=== PATIENT | female | born 1970 | race African-American/Black ===

== ENCOUNTER 2018-04-19 14:36 | Inpatient (IN) ==
[2018-04-19] MEDS ORDERED: SODIUM CHLORIDE 0.9% 1,000 ML IV STA (14:57)
[2018-04-19] MEDS ORDERED: HYDROmorphone 2 MG/1 ML VIAL IV STA (14:57)
[2018-04-19] MEDS ORDERED: PROMETHAZINE 25 MG/1 ML VIAL IM STA (14:58)
[2018-04-19 15:41] LABS: Basophils % 0.3 % (0.0-0.8); Eosinophils % 0.3 % (0.00-10.9); Hematocrit 37.3 VOL% (35.7-47.0); Hemoglobin 12.8 GM/DL (12.0-16.0); Immature Granulocytes % 0.7 %; Immature Granulocytes Absolute 0.05 #; Lymphocytes # 2.5 10*3/uL (1.4-4.0); Lymphocytes % 36.4 % (21.3-54.2); Mean Corpuscular HGB Conc 34.3 GM/DL (32-36); Mean Corpuscular Hemoglobin 30 PG (27-34); Mean Corpuscular Volume 87.4 FL (87-102); Mean Platelet Volume 11.3 FL (9.6-12.0); Monocytes # 0.7 10*3/uL (0.11-0.8); Monocytes % 9.5 % (1.7-12.7); Neutrophils # 3.7 10*3/uL (1.4-7.4); Neutrophils % 52.8 % (38.7-73.9); Platelet Count 177 T/CUMM (130-400); Red Blood Count 4.27 MC/CUMM (3.8-5.5)
[2018-04-19 16:00] LABS: Alanine Aminotransferase 24 U/L (13-56); Albumin 3.1 G/DL (3.4-5.0); Alkaline Phosphatase 53 U/L (45-117); Aspartate Amino Transferase 29 U/L (0-37); Blood Urea Nitrogen 14 MG/DL (7-18); Calcium 8.9 MG/DL (8.5-10.1); Glucose 107 MG/DL (74-106); Osmolality,Calculated 275.7 MOS/KG (273-304); Potassium 3.9 MMOL/L (3.5-5.1); Sodium 138 MMOL/L (136-145); Total Protein 6.7 G/DL (6.4-8.3)
[2018-04-19 16:08] LABS: Folate 3.2 NG/ML (5.4-24.0)
[2018-04-19 16:08] LABS: Apearance,Urine Slightly Hazy (Clear); Bilirubin,Urine Negative (Negative); Blood, Urine Negative (Negative); Glucose,Urine (UA) Negative (Negative); Ketones,Urine 20 mg/dL (Negative); Mucus,Urine Occasional /LPF (Occasional); Nitrite,Urine Negative (Negative); Protein,Urine 30 MG/DL; RBC,Urine 1 /HPF (0-4); Squamous Epithelial Cell,Urine Occasional /HPF (0-10); Urine Color Amber (Yellow); Urine Specific Gravity 1.024 (1.001-1.035); Urine Urobilinogen < 2.0 EU/DL (0.2-1.0); WBC,Urine 1 /HPF (0-6)
[2018-04-19] MEDS ORDERED: MAGNESIUM SULF RIDER 4 GM in PREMIX 1 EACH IV STA (16:23)
[2018-04-19] MEDS ORDERED: hydrALAZINE 20 MG/1 ML VIAL IV STA (16:27)
[2018-04-19] MEDS ORDERED: MAGNESIUM SULF RIDER 100 ML IV ONE (16:28)
[2018-04-19] MEDS ORDERED: hydrALAZINE 20 MG/1 ML VIAL ONE (16:28)
[2018-04-19] MEDS ORDERED: cefTRIAXone 1,000 MG in SODIUM CHLORIDE 0.9% 100 ML IV STA (17:40)
[2018-04-19] MEDS ORDERED: ACETAMINOPHEN 325 MG TABLET PO PRN (18:12)
[2018-04-19] MEDS ORDERED: MELOXICAM 7.5 MG TABLET PO PRN (18:14)
[2018-04-19] MEDS ORDERED: GABAPENTIN 100 MG CAPSULE PO PRN (18:14)
[2018-04-19] MEDS: ZOLPIDEM 5 MG TABLET PO SCH (22:32)
[2018-04-20] MEDS: traMADol 50 MG TABLET PO PRN ×3 (00:08→20:56)
[2018-04-20] MEDS ORDERED: PROMETHAZINE 25 MG/1 ML VIAL IM PRN (04:54)
[2018-04-20 05:19] LABS: Basophils % 0.2 % (0.0-0.8); Hemoglobin 12.3 GM/DL (12.0-16.0); Immature Granulocytes % 0.7 %; Immature Granulocytes Absolute 0.06 #; Lymphocytes # 1.5 10*3/uL (1.4-4.0); Lymphocytes % 18.3 % (21.3-54.2); Mean Corpuscular HGB Conc 34.2 GM/DL (32-36); Mean Corpuscular Hemoglobin 30 PG (27-34); Mean Corpuscular Volume 86.7 FL (87-102); Mean Platelet Volume 11.4 FL (9.6-12.0); Monocytes # 0.7 10*3/uL (0.11-0.8); Monocytes % 9.1 % (1.7-12.7); Neutrophils # 5.8 10*3/uL (1.4-7.4); Neutrophils % 71.7 % (38.7-73.9); Platelet Count 184 T/CUMM (130-400); Red Blood Count 4.15 MC/CUMM (3.8-5.5); Red Cell Distribution Width 16.2 % (9.3-17.3); White Blood Count 8.1 T/CUMM (4-12)
[2018-04-20 05:41] LABS: Calcium 8.9 MG/DL (8.5-10.1); Osmolality,Calculated 277.5 MOS/KG (273-304); Risk Ratio 1.78; VLDL CHOLESTEROL 19.6 MG/DL
[2018-04-20] MEDS ORDERED: FUROSEMIDE 40 MG TABLET PO SCH (09:00)
[2018-04-20] MEDS: LOSARTAN 50 MG TABLET PO SCH (09:24)
[2018-04-20] MEDS: ENOXAPARIN 40 MG/0.4 ML SYRINGE SUBCUT SCH (09:26)
[2018-04-20] MEDS: PANTOPRAZOLE 40 MG TABLET PO SCH (09:26)
[2018-04-20] MEDS: FUROSEMIDE 20 MG TABLET PO SCH (09:26)
[2018-04-20] MEDS: cefTRIAXone 1,000 MG in SYRINGE 1 EACH IV SCH (10:38)
[2018-04-20] MEDS: AZITHROMYCIN INJ 500 MG in SODIUM CHLORIDE 0.9% 250 ML IV SCH (10:40)
[2018-04-20] MEDS: METOPROLOL SUCCINATE XL 25 MG TABLET PO SCH (15:28)
[2018-04-20 16:00] LABS: Barbiturates Screen,Urine Negative (Negative); Benzodiazepines Screen,Urine Negative (Negative); Cannabinoid Screen,Urine Negative (Negative); Opiate Screen,Urine Positive (Negative); Phencyclidine Screen,Urine Negative (Negative)
[2018-04-20] MEDS: ZOLPIDEM 5 MG TABLET PO SCH (20:56)
[2018-04-21 04:51] LABS: Basophils % 0.5 % (0.0-0.8); Eosinophils # 0.4 10*3/uL (0.0-0.87); Eosinophils % 6.6 % (0.00-10.9); Hematocrit 33.4 VOL% (35.7-47.0); Hemoglobin 11.4 GM/DL (12.0-16.0); Immature Granulocytes % 0.8 %; Immature Granulocytes Absolute 0.05 #; Lymphocytes # 2.2 10*3/uL (1.4-4.0); Mean Corpuscular HGB Conc 34.1 GM/DL (32-36); Mean Corpuscular Hemoglobin 30 PG (27-34); Mean Corpuscular Volume 87.4 FL (87-102); Mean Platelet Volume 11.6 FL (9.6-12.0); Monocytes # 0.7 10*3/uL (0.11-0.8); Monocytes % 10.8 % (1.7-12.7); Neutrophils # 2.9 10*3/uL (1.4-7.4); Neutrophils % 46.3 % (38.7-73.9); Platelet Count 173 T/CUMM (130-400); Red Blood Count 3.82 MC/CUMM (3.8-5.5); Red Cell Distribution Width 16.5 % (9.3-17.3); White Blood Count 6.2 T/CUMM (4-12)
[2018-04-21 05:28] LABS: Calcium 8.3 MG/DL (8.5-10.1); Osmolality,Calculated 275.4 MOS/KG (273-304); Potassium 3.5 MMOL/L (3.5-5.1)
[2018-04-21] MEDS: ENOXAPARIN 40 MG/0.4 ML SYRINGE SUBCUT SCH (08:13)
[2018-04-21] MEDS: METOPROLOL SUCCINATE XL 25 MG TABLET PO SCH (08:14)
[2018-04-21] MEDS: LOSARTAN 50 MG TABLET PO SCH (08:14)
[2018-04-21] MEDS: FUROSEMIDE 20 MG TABLET PO SCH (08:14)
[2018-04-21] MEDS: PANTOPRAZOLE 40 MG TABLET PO SCH (08:14)
[2018-04-21] MEDS: cefTRIAXone 1,000 MG in SYRINGE 1 EACH IV SCH (08:14)
[2018-04-21] MEDS: AZITHROMYCIN INJ 500 MG in SODIUM CHLORIDE 0.9% 250 ML IV SCH (10:03)
[2018-04-21] MEDS: traMADol 50 MG TABLET PO PRN ×2 (11:58→21:42)
[2018-04-21] MEDS: CYCLOBENZAPRINE 10 MG TABLET PO PRN (16:43)
[2018-04-21] MEDS: ZOLPIDEM 5 MG TABLET PO SCH (21:41)
[2018-04-22] MEDS: ENOXAPARIN 40 MG/0.4 ML SYRINGE SUBCUT SCH (09:06)
[2018-04-22] MEDS: cefTRIAXone 1,000 MG in SYRINGE 1 EACH IV SCH (09:06)
[2018-04-22] MEDS: METOPROLOL SUCCINATE XL 25 MG TABLET PO SCH (09:09)
[2018-04-22] MEDS: LOSARTAN 50 MG TABLET PO SCH (09:10)
[2018-04-22] MEDS: PANTOPRAZOLE 40 MG TABLET PO SCH (09:10)
[2018-04-22] MEDS: traMADol 50 MG TABLET PO PRN ×2 (09:10→18:37)
[2018-04-22] MEDS: FUROSEMIDE 20 MG TABLET PO SCH (09:15)
[2018-04-22] MEDS: AZITHROMYCIN INJ 500 MG in SODIUM CHLORIDE 0.9% 250 ML IV SCH (10:28)
[2018-04-22] MEDS: GABAPENTIN 300 MG CAPSULE PO SCH (20:22)
[2018-04-22] MEDS: ZOLPIDEM 5 MG TABLET PO SCH (20:22)
[2018-04-23] MEDS: traMADol 50 MG TABLET PO PRN ×2 (03:32→10:05)
[2018-04-23] MEDS: CYCLOBENZAPRINE 10 MG TABLET PO PRN ×2 (03:33→10:05)
[2018-04-23 04:50] LABS: Basophils % 0.6 % (0.0-0.8); Eosinophils # 0.5 10*3/uL (0.0-0.87); Eosinophils % 7.9 % (0.00-10.9); Hematocrit 33.7 VOL% (35.7-47.0); Hemoglobin 11.2 GM/DL (12.0-16.0); Immature Granulocytes % 0.6 %; Immature Granulocytes Absolute 0.04 #; Lymphocytes # 2.4 10*3/uL (1.4-4.0); Lymphocytes % 37.6 % (21.3-54.2); Mean Corpuscular HGB Conc 33.2 GM/DL (32-36); Mean Corpuscular Hemoglobin 29 PG (27-34); Mean Corpuscular Volume 88.2 FL (87-102); Mean Platelet Volume 10.9 FL (9.6-12.0); Monocytes # 0.6 10*3/uL (0.11-0.8); Neutrophils # 2.7 10*3/uL (1.4-7.4); Neutrophils % 43.3 % (38.7-73.9); Platelet Count 189 T/CUMM (130-400); Red Blood Count 3.82 MC/CUMM (3.8-5.5); Red Cell Distribution Width 15.9 % (9.3-17.3); White Blood Count 6.3 T/CUMM (4-12)
[2018-04-23 05:17] LABS: Albumin 2.7 G/DL (3.4-5.0); Bilirubin,Total 0.7 MG/DL (0.2-1.0); Calcium 8.6 MG/DL (8.5-10.1); Osmolality,Calculated 283.3 MOS/KG (273-304); Potassium 3.2 MMOL/L (3.5-5.1)
[2018-04-23] MEDS: FUROSEMIDE 20 MG TABLET PO SCH (08:39)
[2018-04-23] MEDS: METOPROLOL SUCCINATE XL 25 MG TABLET PO SCH (08:39)
[2018-04-23] MEDS: GABAPENTIN 300 MG CAPSULE PO SCH ×2 (08:39→20:24)
[2018-04-23] MEDS: LOSARTAN 50 MG TABLET PO SCH (08:39)
[2018-04-23] MEDS: cefTRIAXone 1,000 MG in SYRINGE 1 EACH IV SCH (08:39)
[2018-04-23] MEDS: PANTOPRAZOLE 40 MG TABLET PO SCH (08:40)
[2018-04-23] MEDS: ENOXAPARIN 40 MG/0.4 ML SYRINGE SUBCUT SCH (09:18)
[2018-04-23] MEDS: amLODIPine 5 MG TABLET PO SCH (09:19)
[2018-04-23] MEDS ORDERED: POTASSIUM CHLORIDE 20 MEQ TABLET PO ONE (10:10)
[2018-04-23] MEDS: MAGNESIUM OXIDE 400 MG TABLET PO SCH ×2 (10:49→20:24)
[2018-04-23] MEDS: ZOLPIDEM 5 MG TABLET PO SCH (20:23)
[2018-04-24 05:04] LABS: Basophils # 0.1 10*3/uL (0.0-0.2); Basophils % 0.8 % (0.0-0.8); Eosinophils # 0.3 10*3/uL (0.0-0.87); Eosinophils % 4.5 % (0.00-10.9); Hematocrit 32.4 VOL% (35.7-47.0); Hemoglobin 10.9 GM/DL (12.0-16.0); Immature Granulocytes % 0.8 %; Immature Granulocytes Absolute 0.05 #; Lymphocytes # 2.9 10*3/uL (1.4-4.0); Lymphocytes % 45.6 % (21.3-54.2); Mean Corpuscular HGB Conc 33.6 GM/DL (32-36); Mean Corpuscular Hemoglobin 29 PG (27-34); Mean Corpuscular Volume 87.3 FL (87-102); Mean Platelet Volume 11.1 FL (9.6-12.0); Monocytes # 0.8 10*3/uL (0.11-0.8); Monocytes % 12.5 % (1.7-12.7); Neutrophils # 2.3 10*3/uL (1.4-7.4); Neutrophils % 35.8 % (38.7-73.9); Platelet Count 205 T/CUMM (130-400); Red Blood Count 3.71 MC/CUMM (3.8-5.5); Red Cell Distribution Width 16.2 % (9.3-17.3); White Blood Count 6.4 T/CUMM (4-12)
[2018-04-24 05:17] LABS: Calcium 8.8 MG/DL (8.5-10.1); Osmolality,Calculated 275.7 MOS/KG (273-304); Potassium 3.6 MMOL/L (3.5-5.1)
[2018-04-24 05:36] LABS: Eosinophils 2 % (0-10); Lymphocytes 38 % (20-55); Nucleated Red Blood Cells 1 (0-5); Platelet Estimate Normal; Polychromasia Slight; Segmented Neutrophils 55 % (50-85); Total Cells Counted 100
[2018-04-24] MEDS ORDERED: MAGNESIUM SULF RIDER 2 GM in PREMIX 1 EACH IV PRN (08:10)
[2018-04-24] MEDS ORDERED: MAGNESIUM SULF RIDER 4 GM in PREMIX 1 EACH IV PRN (08:10)
[2018-04-24] MEDS: MAGNESIUM OXIDE 400 MG TABLET PO SCH ×2 (09:31→21:09)
[2018-04-24] MEDS: PANTOPRAZOLE 40 MG TABLET PO SCH (09:31)
[2018-04-24] MEDS: GABAPENTIN 300 MG CAPSULE PO SCH ×2 (09:31→21:09)
[2018-04-24] MEDS: FUROSEMIDE 20 MG TABLET PO SCH (09:31)
[2018-04-24] MEDS: POTASSIUM CHLORIDE 20 MEQ TABLET PO SCH (09:31)
[2018-04-24] MEDS: LOSARTAN 50 MG TABLET PO SCH (09:31)
[2018-04-24] MEDS: amLODIPine 5 MG TABLET PO SCH (09:32)
[2018-04-24] MEDS: ENOXAPARIN 40 MG/0.4 ML SYRINGE SUBCUT SCH (09:32)
[2018-04-24] MEDS: METOPROLOL SUCCINATE XL 100 MG TABLET PO SCH (09:35)
[2018-04-24] MEDS: IMMUNE GLOBULIN 10% 40 GM, IMMUNE GLOBULIN 10% 5 GM in PREMIX 1 EACH IV SCH (14:23)
[2018-04-24] MEDS: ZOLPIDEM 5 MG TABLET PO SCH (21:09)
[2018-04-25 05:59] LABS: Basophils % 0.7 % (0.0-0.8); Eosinophils # 0.2 10*3/uL (0.0-0.87); Eosinophils % 3.6 % (0.00-10.9); Hemoglobin 11.2 GM/DL (12.0-16.0); Immature Granulocytes % 0.9 %; Immature Granulocytes Absolute 0.05 #; Lymphocytes # 1.4 10*3/uL (1.4-4.0); Mean Corpuscular HGB Conc 32.9 GM/DL (32-36); Mean Corpuscular Hemoglobin 29 PG (27-34); Mean Corpuscular Volume 88.8 FL (87-102); Mean Platelet Volume 10.6 FL (9.6-12.0); Monocytes # 0.4 10*3/uL (0.11-0.8); Neutrophils # 3.9 10*3/uL (1.4-7.4); Neutrophils % 65.8 % (38.7-73.9); Platelet Count 219 T/CUMM (130-400); Red Blood Count 3.83 MC/CUMM (3.8-5.5); Red Cell Distribution Width 15.7 % (9.3-17.3); White Blood Count 5.9 T/CUMM (4-12)
[2018-04-25] MEDS ORDERED: amLODIPine 10 MG TABLET PO SCH (08:04)
[2018-04-25] MEDS: LOSARTAN 50 MG TABLET PO SCH (08:56)
[2018-04-25] MEDS: FUROSEMIDE 20 MG TABLET PO SCH (08:56)
[2018-04-25] MEDS: POTASSIUM CHLORIDE 20 MEQ TABLET PO SCH (08:56)
[2018-04-25] MEDS: GABAPENTIN 300 MG CAPSULE PO SCH (08:56)
[2018-04-25] MEDS: CYCLOBENZAPRINE 10 MG TABLET PO PRN (08:56)
[2018-04-25] MEDS: PANTOPRAZOLE 40 MG TABLET PO SCH (08:57)
[2018-04-25] MEDS: MAGNESIUM OXIDE 400 MG TABLET PO SCH (08:57)
[2018-04-25] MEDS: METOPROLOL SUCCINATE XL 100 MG TABLET PO SCH (08:57)
[2018-04-25] MEDS: ENOXAPARIN 40 MG/0.4 ML SYRINGE SUBCUT SCH (08:58)
[2018-04-25] MEDS: IMMUNE GLOBULIN 10% 40 GM, IMMUNE GLOBULIN 10% 5 GM in PREMIX 1 EACH IV SCH (11:30)
[2018-04-25 14:23] LABS: Basophils % 0.4 % (0.0-0.8); Eosinophils # 0.3 10*3/uL (0.0-0.87); Eosinophils % 4.6 % (0.00-10.9); Hematocrit 33.2 VOL% (35.7-47.0); Hemoglobin 11.1 GM/DL (12.0-16.0); Immature Granulocytes % 1.1 %; Immature Granulocytes Absolute 0.06 #; Lymphocytes % 34.9 % (21.3-54.2); Mean Corpuscular HGB Conc 33.4 GM/DL (32-36); Mean Corpuscular Hemoglobin 30 PG (27-34); Mean Corpuscular Volume 88.3 FL (87-102); Mean Platelet Volume 10.4 FL (9.6-12.0); Monocytes # 0.4 10*3/uL (0.11-0.8); Monocytes % 7.2 % (1.7-12.7); Neutrophils % 51.8 % (38.7-73.9); Platelet Count 215 T/CUMM (130-400); Red Blood Count 3.76 MC/CUMM (3.8-5.5); Red Cell Distribution Width 15.6 % (9.3-17.3); White Blood Count 5.7 T/CUMM (4-12)
[2018-04-25] MEDS ORDERED: ETOMIDATE 20 MG/10 ML VIAL IV ONE ×2 (14:37→14:42)
[2018-04-25] MEDS ORDERED: VECURONIUM 10 MG VIAL IV ONE ×2 (14:37→14:45)
[2018-04-25 14:45] LABS: Albumin 2.5 G/DL (3.4-5.0); Bilirubin,Total 0.5 MG/DL (0.2-1.0); Calcium 8.5 MG/DL (8.5-10.1); Osmolality,Calculated 275.7 MOS/KG (273-304); Potassium 3.6 MMOL/L (3.5-5.1); Total Protein 7.3 G/DL (6.4-8.3)
[2018-04-25] MEDS ORDERED: PROPOFOL 1,000 MG/100 ML BOTTLE IV SCH (15:30)
[2018-04-25 16:07] LABS: ABG Base Excess 0.1 MMOL/L (-2.5-2.5); ABG HCO3 21.8 MMOL/L (20-26); ABG Oxygen Saturation 97.3 % (95-100); ABG PCO2 27.3 MM HG (35-48); ABG PO2 85.6 MM HG (80-95); ABG TCO2 22.6 MMOL/L (23-27)
[2018-04-25 16:37] LABS: Apearance,Urine CLEAR (Clear); Bacteria,Urine Occasional /HPF (Few); Bilirubin,Urine Negative (Negative); Blood, Urine Small mg/dL (Negative); Glucose,Urine (UA) Negative (Negative); Ketones,Urine Negative (Negative); Mucus,Urine Occasional /LPF (Occasional); Nitrite,Urine Negative (Negative); Protein,Urine Negative; RBC,Urine <1 /HPF (0-4); Squamous Epithelial Cell,Urine Occasional /HPF (0-10); Urine Color Straw (Yellow); Urine Specific Gravity 1.006 (1.001-1.035); Urine Urobilinogen < 2.0 EU/DL (0.2-1.0); WBC,Urine 1 /HPF (0-6)
[2018-04-25] MEDS ORDERED: MIDAZOLAM 100 MG in SODIUM CHLORIDE 0.9% 80 ML IV PRN (17:40)
[2018-04-25 18:55] VITALS: BP 109/78
[2018-04-25] MEDS ORDERED: AMITRIPTYLINE 25 MG TABLET PO SCH (21:00)
== END 2018-04-25 19:30 | disposition hospice, home (50) | DRG 95 ==
LOC: N.ED 14:36 → SUATTDRO 18:10 → N.EDINP 18:10 → N.3E 19:33 → N.CC 04-25 14:35
PROVIDERS: ADMIT Internal Medicine; ATTEND Hospitalist

== ENCOUNTER 2018-11-18 13:36 | Inpatient (IN) ==
[2018-11-18 15:12] LABS: Apearance,Urine Slightly Hazy (Clear); Bacteria,Urine Many /HPF (Few); Blood, Urine Small mg/dL (Negative); Glucose,Urine (UA) Negative (Negative); Ketones,Urine Negative (Negative); Mucus,Urine Few /LPF (Occasional); Nitrite,Urine Negative (Negative); Protein,Urine 30 MG/DL; Squamous Epithelial Cell,Urine Occasional /HPF (0-10); Urine Color Amber (Yellow); Urine Specific Gravity 1.023 (1.001-1.035); WBC,Urine 6 /HPF (0-6)
[2018-11-18 15:15] LABS: Bilirubin,Urine Small mg/dL (Negative)
[2018-11-18 17:06] LABS: Basophils % 0.3 % (0.0-0.8); Hematocrit 31.3 VOL% (35.7-47.0); Hemoglobin 10.2 GM/DL (12.0-16.0); Immature Granulocytes % 1.6 %; Immature Granulocytes Absolute 0.19 #; Lymphocytes # 3.7 10*3/uL (1.4-4.0); Lymphocytes % 30.3 % (21.3-54.2); Mean Corpuscular HGB Conc 32.6 GM/DL (32-36); Mean Corpuscular Volume 84.1 FL (87-102); Mean Platelet Volume 10.4 FL (9.6-12.0); Monocytes % 4.7 % (1.7-12.7); Neutrophils % 63.1 % (38.7-73.9); Platelet Count 209 T/CUMM (130-400); Red Blood Count 3.72 MC/CUMM (3.8-5.5); Red Cell Distribution Width 19.6 % (9.3-17.3); White Blood Count 12.1 T/CUMM (4-12)
[2018-11-18 17:45] LABS: Albumin 1.7 G/DL (3.4-5.0); Bilirubin,Total 1.2 MG/DL (0.2-1.0); Total Protein 5.6 G/DL (6.4-8.3)
[2018-11-18] MEDS ORDERED: SODIUM CHLORIDE 0.9% 500 ML IV ONE (18:35)
[2018-11-18] MEDS ORDERED: SODIUM CHLORIDE 0.9% 1,000 ML IV ONE (18:35)
[2018-11-18] MEDS ORDERED: ACETAMINOPHEN 325 MG TABLET PO PRN (19:00)
[2018-11-18 20:34] LABS: Troponin I 0.324 NG/ML (0.00-0.045)
[2018-11-18] MEDS ORDERED: ENOXAPARIN 30 MG/0.3 ML SYRINGE SUBCUT SCH (21:00)
[2018-11-18] MEDS: SODIUM CHLORIDE 0.9% 1,000 ML IV SCH (22:12)
[2018-11-18] MEDS: guaiFENesin/DM ER 600-30 MG TABLET PO SCH (22:12)
[2018-11-18] MEDS: MEROPENEM 500 MG in SODIUM CHLORIDE 0.9% 100 ML IV SCH (22:54)
[2018-11-18] MEDS: VANCOMYCIN INJ 1,500 MG in SODIUM CHLORIDE 0.9% 500 ML IV SCH (23:41)
[2018-11-19 02:05] LABS: Basophils % 0.1 % (0.0-0.8); Hematocrit 30.8 VOL% (35.7-47.0); Hemoglobin 9.8 GM/DL (12.0-16.0); Immature Granulocytes % 1.8 %; Immature Granulocytes Absolute 0.26 #; Lymphocytes # 5.6 10*3/uL (1.4-4.0); Lymphocytes % 38.4 % (21.3-54.2); Mean Corpuscular HGB Conc 31.8 GM/DL (32-36); Mean Corpuscular Volume 85.3 FL (87-102); Monocytes % 6.9 % (1.7-12.7); Neutrophils % 52.8 % (38.7-73.9); Platelet Count 204 T/CUMM (130-400); Red Blood Count 3.61 MC/CUMM (3.8-5.5); Red Cell Distribution Width 19.6 % (9.3-17.3); White Blood Count 14.6 T/CUMM (4-12)
[2018-11-19 02:24] LABS: Albumin 1.6 G/DL (3.4-5.0); Bilirubin,Total 0.8 MG/DL (0.2-1.0); Calcium 7.5 MG/DL (8.5-10.1); Osmolality,Calculated 288.8 MOS/KG (273-304); Risk Ratio 2.3; Total Protein 5.1 G/DL (6.4-8.3); VLDL CHOLESTEROL 26.8 MG/DL
[2018-11-19 02:26] LABS: Troponin I 0.323 NG/ML (0.00-0.045)
[2018-11-19] MEDS: MEROPENEM 500 MG in SODIUM CHLORIDE 0.9% 100 ML IV SCH ×3 (04:31→22:09)
[2018-11-19] MEDS: SODIUM CHLORIDE 0.9% 1,000 ML IV SCH ×3 (04:35→21:19)
[2018-11-19] MEDS ORDERED: ASPIRIN CHEW 81 MG TABLET PO SCH (09:00)
[2018-11-19] MEDS: guaiFENesin/DM ER 600-30 MG TABLET PO SCH ×2 (09:14→21:26)
[2018-11-19] MEDS ORDERED: oxyCODONE IR 5 MG TABLET PO PRN (11:58)
[2018-11-19] MEDS ORDERED: HEPARIN 5,000 UNIT/1 ML VIAL IV ONE (16:00)
[2018-11-19] MEDS: HEPARIN DRIP 25,000 UNITS/500 ML PREMIX IV SCH (16:43)
[2018-11-19 17:07] LABS: ABG Base Excess -3.6 MMOL/L (-2.5-2.5); ABG HCO3 21.4 MMOL/L (20-26); ABG Oxygen Saturation 95.7 % (95-100); ABG PCO2 36.6 MM HG (35-48); ABG PO2 76.8 MM HG (80-95); ABG TCO2 19.4 MMOL/L (23-27)
[2018-11-19] MEDS ORDERED: SODIUM CHLORIDE 0.9% 500 ML IV ONE ×2 (18:11→20:55)
[2018-11-19] MEDS ORDERED: GABAPENTIN 300 MG CAPSULE PO SCH (21:00)
[2018-11-19] MEDS: VANCOMYCIN INJ 1,500 MG in SODIUM CHLORIDE 0.9% 500 ML IV SCH (22:58)
[2018-11-20 01:48] LABS: Calcium 6.9 MG/DL (8.5-10.1); Osmolality,Calculated 280.4 MOS/KG (273-304)
[2018-11-20 02:28] LABS: Basophils # 0.1 10*3/uL (0.0-0.2); Basophils % 0.4 % (0.0-0.8); Eosinophils # 0.1 10*3/uL (0.0-0.87); Eosinophils % 0.5 % (0.00-10.9); Hematocrit 26.5 VOL% (35.7-47.0); Hemoglobin 8.7 GM/DL (12.0-16.0); Immature Granulocytes Absolute 0.31 #; Lymphocytes # 7.9 10*3/uL (1.4-4.0); Lymphocytes % 50.1 % (21.3-54.2); Mean Corpuscular HGB Conc 32.8 GM/DL (32-36); Mean Corpuscular Volume 85.2 FL (87-102); Mean Platelet Volume 11.2 FL (9.6-12.0); Monocytes % 6.5 % (1.7-12.7); NRBC # 0.02 10*3/uL; Neutrophils % 40.5 % (38.7-73.9); Platelet Count 203 T/CUMM (130-400); Red Blood Count 3.11 MC/CUMM (3.8-5.5); White Blood Count 15.8 T/CUMM (4-12)
[2018-11-20] MEDS: SODIUM CHLORIDE 0.9% 1,000 ML IV SCH ×3 (03:01→19:48)
[2018-11-20] MEDS: MEROPENEM 500 MG in SODIUM CHLORIDE 0.9% 100 ML IV SCH (04:52)
[2018-11-20 04:54] LABS: Platelet Estimate Adequate; Polychromasia Few
[2018-11-20] MEDS: POTASSIUM CHLORIDE 20 MEQ TABLET PO SCH ×4 (06:45→19:37)
[2018-11-20] MEDS: MAGNESIUM SULF RIDER 1 GM in PREMIX 1 EACH IV SCH ×3 (06:55→19:40)
[2018-11-20] MEDS ORDERED: cefTRIAXone 1,000 MG in SYRINGE 1 EACH IV SCH (08:00)
[2018-11-20] MEDS ORDERED: ALBUMIN 25% 50 GM in PREMIX 1 EACH IV ONE ×2 (08:52→13:00)
[2018-11-20] MEDS ORDERED: CITALOPRAM 20 MG TABLET PO SCH (09:00)
[2018-11-20 09:11] LABS: % Iron Saturation 123.4 % (18-50); Ferritin 1974.9 ng/ml (8-252)
[2018-11-20 09:41] LABS: Folate 4.3 NG/ML (5.4-24.0)
[2018-11-20] MEDS: guaiFENesin/DM ER 600-30 MG TABLET PO SCH (10:42)
[2018-11-20] MEDS: HEPARIN DRIP 25,000 UNITS/500 ML PREMIX IV SCH ×2 (10:46→19:35)
[2018-11-20] MEDS ORDERED: methylPREDNISolone SOD SUC 40 MG/1 ML VIAL IV SCH (14:00)
[2018-11-20] MEDS ORDERED: AZITHROMYCIN INJ 500 MG in SODIUM CHLORIDE 0.9% 250 ML IV SCH (14:00)
[2018-11-20] MEDS ORDERED: MAGNESIUM SULF RIDER 4 GM in PREMIX 1 EACH IV PRN (16:16)
[2018-11-20] MEDS ORDERED: MAGNESIUM SULF RIDER 2 GM in PREMIX 1 EACH IV PRN (16:16)
[2018-11-20] MEDS ORDERED: PANTOPRAZOLE 40 MG TABLET PO SCH (16:30)
[2018-11-20] MEDS ORDERED: SUCCINYLCHOLINE 200 MG/10 ML VIAL ONE (17:24)
[2018-11-20] MEDS ORDERED: ETOMIDATE 20 MG/10 ML VIAL IV ONE ×2 (17:24→17:28)
[2018-11-20] MEDS ORDERED: SUCCINYLCHOLINE 200 MG/10 ML VIAL IV ONE (17:28)
[2018-11-20] MEDS ORDERED: EPINEPHrine 1 MG/10 ML SYRINGE IV ONE (17:34)
[2018-11-20] MEDS ORDERED: DOPamine 800 MG/250 ML PREMIX IV ONE (17:38)
[2018-11-20] MEDS ORDERED: DOPamine 800 MG/250 ML PREMIX IV PRN (17:54)
[2018-11-20 17:56] LABS: Eosinophils # 0.1 10*3/uL (0.0-0.87); Eosinophils % 1.1 % (0.00-10.9); Hematocrit 19.3 VOL% (35.7-47.0); Immature Granulocytes % 2.2 %; Lymphocytes % 65.4 % (21.3-54.2); Mean Corpuscular HGB Conc 18.7 GM/DL (32-36); Mean Corpuscular Volume 156.9 FL (87-102); Mean Platelet Volume 12.4 FL (9.6-12.0); Monocytes % 6.9 % (1.7-12.7); NRBC # 0.07 10*3/uL; Neutrophils % 24.4 % (38.7-73.9)
[2018-11-20] MEDS ORDERED: PHENYLEPHRINE DRIP 40 MG/250 ML PREMIX IV ONE (17:59)
[2018-11-20 18:02] LABS: Hemoglobin 3.6 GM/DL (12.0-16.0); Platelet Count 84 T/CUMM (130-400); Red Blood Count 1.23 MC/CUMM (3.8-5.5); White Blood Count 9.2 T/CUMM (4-12)
[2018-11-20] MEDS ORDERED: SODIUM CHLORIDE 0.9% 1,000 ML IV PRN ×2 (18:02→18:20)
[2018-11-20] MEDS ORDERED: EPINEPHrine 1 MG/10 ML SYRINGE ONE (18:04)
[2018-11-20] MEDS ORDERED: CALCIUM CHLORIDE 1,000 MG/10 ML SYRINGE IV ONE (18:04)
[2018-11-20] MEDS ORDERED: SODIUM BICARBONATE 50 MEQ/50 ML SYRINGE IV ONE (18:04)
[2018-11-20 18:05] LABS: Alanine Aminotransferase 11 U/L (13-56); Albumin 2.1 G/DL (3.4-5.0); Alkaline Phosphatase 122 U/L (45-117); Aspartate Amino Transferase 42 U/L (0-37); Blood Urea Nitrogen 16 MG/DL (7-18); Estimated Glom Filtration Rate 57 ML/MIN; Glucose 94 MG/DL (74-106); Osmolality,Calculated 247.8 MOS/KG (273-304); Total Protein 4.1 G/DL (6.4-8.3)
[2018-11-20 18:25] LABS: Folate 10.9 NG/ML (5.4-24.0); Vitamin B12 1045 PG/ML (211-911)
[2018-11-20] MEDS ORDERED: TRANEXAMIC ACID 1,000 MG in SODIUM CHLORIDE 0.9% 100 ML IV ONE (18:31)
[2018-11-20] MEDS ORDERED: DORNASE ALFA 2.5 MG/2.5 ML VIAL RESP TX SCH (19:00)
[2018-11-20] MEDS ORDERED: VASOPRESSIN 100 UNITS in SODIUM CHLORIDE 0.9% 95 ML IV SCH (19:00)
[2018-11-20] MEDS ORDERED: ALBUTEROL/IPRATROPIUM 3 ML NEB RESP TX SCH (19:00)
[2018-11-20] MEDS ORDERED: PHENYLEPHRINE DRIP 40 MG/250 ML PREMIX IV PRN (19:13)
[2018-11-20] MEDS ORDERED: NOREPINEPHRINE 8 MG in SODIUM CHLORIDE 0.9% 242 ML IV PRN (19:13)
[2018-11-20] MEDS ORDERED: SODIUM CHLORIDE 0.9% 500 ML IV ONE (19:14)
[2018-11-20 19:19] LABS: Band Neutrophils 2 % (0-10); Eosinophils 1 % (0-10); Lymphocytes 57 % (20-55); Nucleated Red Blood Cells 1 (0-5); Segmented Neutrophils 38 % (50-85); Total Cells Counted 100
[2018-11-20 19:20] VITALS: BP 84/67
[2018-11-20 19:20] LABS: Anisocytosis 3+; Hypochromasia 3+; Macrocytosis 3+; Platelet Estimate Decreased; Poikilocytosis 2+; Spherocytes 3+
[2018-11-20 19:21] LABS: Polychromasia Slight
[2018-11-20 19:24] LABS: Elliptocytes 1+
[2018-11-20] MEDS ORDERED: FOLIC ACID 1 MG TABLET PO SCH (21:00)
[2018-11-21 07:45] LABS: Calcium < 5.0 MG/DL (8.5-10.1)
[2018-11-23 09:26] LABS: Hemoglobin A1 (Alkaline) 97.6 % (96.5-98.5); Hemoglobin A2 (Alkaline) 2.4 % (1.5-3.5)
== END 2018-11-20 20:34 | disposition expired | DRG 871 ==
LOC: N.ED 13:36 → SUATTDRO 19:00 → N.EDINP 19:00 → N.5E 19:43 → N.CC 11-20 17:32
PROVIDERS: ADMIT Internal Medicine; ATTEND Internal Medicine Cardiovascular Disease